=== PATIENT | female | born 1995 | race Hispanic/Latino ===

== ENCOUNTER 2019-01-06 14:40 | Emergency (ER) | payer SELFPAY ==
[2019-01-06] MEDS ORDERED: NA CHLORIDE 0.9% 1,000 ML ONE (15:25)
[2019-01-06 15:31] LABS: Absolute Lymphocytes (CBC) 2.9 K/uL (0.7-4.9); Absolute Monocytes 0.6 K/uL (0.1-1.3); Absolute Neutrophil 9.5 K/uL (1.8-8.0); Basophils % 0.5 % (0-1.3); Eosinophils % 0.5 % (0-4.4); Hematocrit 38.7 % (36.0-45.0); Lymphocytes % 22.1 % (15.3-44.8); MPV 8.1 fL (7.6-11.3); Monocytes % 4.2 % (3.3-12.3); RBC Red Blood Cell Count 4.39 M/uL (3.86-4.86)
[2019-01-06 16:05] LABS: BUN Blood Urea Nitrogen 8 mg/dL (7-18); Bicarbonate 25 mmol/L (21-32); Glucose Level 95 mg/dL (74-106); HCG, Quantitative 25389 mIU/mL (1-3); Potassium 3.3 mmol/L (3.5-5.1); Sodium Level 139 mmol/L (136-145)
--- NOTE | 2019-01-06 16:44 | RAD REPORT ---
EXAM DESCRIPTION: US - 1St Trimest Single 1St Fetus - 01/06/2019 4:27 pm CLINICAL HISTORY: ABD CRAMPING, COMPARISON: No comparisons FINDINGS: A single gestational sac is seen within the uterus. The shape of the sac is within normal limits for gestational age. Within the sac is a single pole with estimated gestational age of 1 4 weeks 4 days. Estimated date of delivery is 07/03/2019. Heart rate is 149 BPM, normal. The placenta is not yet developed due to early gestational age. The maternal adnexa and right ovary are within normal limits. Normal Doppler blood flow was demonstra maggie to right ovary. The left ovary was obscured by bowel gas. IMPRESSION: Single live early intrauterine gestation with estimated gestational age of 14 weeks 4 da ys, LITZY 07/03/2019. No acute abnormality detected.
--- NOTE | 2019-01-06 17:07 | ER ---
Nurse's Notes [facility] Name: Elissa Goldberg Age: 23 yrs Sex: Female : 1995 Arrival Date: 01/06/2019 Time: 14:42 Bed 28 Private MD: None, None Diagnosis: Lower abdominal pain, unspecified;14 weeks gestation of Presentation: 01/06 14:43 Presenting complaint: Lower abdominal cramping since this morning. Pt reports she is 7 hb weeks , LMP 10/03/18, . Denies bleeding/increased discharge/urinary s/s. Transition of care: patient was not received from another setting of care. Onset of symptoms was January 06, 2019. Risk Assessment: Do you want to hurt yourself or someone else? Patient reports no desire to harm self or others. Care prior to arrival: None. 14:43 Method Of Arrival: Ambulatory hb 14:43 Acuity: RENETTA 3 hb 15:31 Initial Sepsis Screen: Does the patient meet any 2 criteria? No. Patient's initial rv sepsis screen is negative. Does the patient have a suspected source of infection? No. Patient's initial sepsis screen is negative. 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 - Social history:: Smoking status: Patient/guardian denies using tobacco. - Ebola Screening: : No symptoms or risks identified at this time. Screenin:31 Abuse screen: Denies threats or abuse. Denies injuries from another. Nutritional rv screening: No deficits noted. Tuberculosis screening: No symptoms or risk factors identified. Fall Risk None identified. Assessment: 15:30 General: Appears in no apparent distress. uncomfortable, Behavior is calm, cooperative. rv Pain: Complains of pain in abdomen. Pain: Pain currently is 7 out of 10 on a pain scale. Neuro: Level of Consciousness is awake, alert, obeys commands, Oriented to person, place, time. Cardiovascular: Capillary refill < 3 seconds. Respiratory: Airway is patent. GI: Reports lower abdominal pain, cramping. : No signs and/or symptoms were reported regarding the genitourinary system. EENT: No signs and/or symptoms were reported regarding the EENT system. Derm: Skin is intact. Musculoskeletal: No signs and/or symptoms reported regarding the musculoskeletal system. 17:09 Reassessment: Patient appears in no apparent distress at this time. Patient and/or rv family updated on plan of care and expected duration. Pain level reassessed. Patient is alert, oriented x 3, equal unlabored respirations, skin warm/dry/pink. Vital Signs: 14:45 BP 124 / 77; Pulse 91; Resp 16; Temp 98.6; Pulse Ox 100% on R/A; Pain 7/10; hb 15:00 BP 107 / 63; Pulse 77; Resp 18; rv 15:15 BP 108 / 63; Pulse 86; Resp 17; rv 15:30 BP 98 / 64; Pulse 85; Resp 16; rv 16:00 BP 99 / 58; Pulse 85; Resp 19 S; rv 16:30 BP 113 / 66; Pulse 79; Resp 18 S; rv 16:45 BP 120 / 75; Pulse 85; Resp 18 S; rv 17:00 BP 108 / 53; Pulse 74; Resp 16 S; rv 17:25 BP 114 / 69; Pulse 76; Resp 18; Pulse Ox 99% on R/A; rv ED Course: 14:42 Patient arrived in ED. sb2 14:44 None, None is Private Physician. sb2 14:45 Triage completed. hb 14:45 Arm band placed on. hb 14:57 Shea Gee [facility]C [facility]. snw 14:57 Cassius Cotton MD is Attending Physician. snw 15:05 Inserted saline lock: 20 gauge in right antecubital area, using aseptic technique. rv Blood collected. 15:29 Quantitative Hcg Sent. rv 15:29 Abo/rh Typing Sent. rv 15:29 Basic Metabolic Panel Sent. rv 15:31 Patient has correct armband on for positive identification. Bed in low position. Call rv light in reach. Side rails up X 1. Adult w/ patient. Pulse ox on. NIBP on. 16:31 1St Trimest Single 1St Fetus In Process Unspecified. EDMS 17:26 No provider procedures requiring assistance completed. IV discontinued, bleeding rv controlled, No redness/swelling at site. Pressure dressing applied. Administered Medications: 15:29 Drug: NS 0.9% 1000 ml Route: IV; Rate: 125 ml/hr; Site: right antecubital; rv 17:26 Follow up: IV Status: Completed infusion rv Outcome: 17:07 Discharge ordered by . snbenja 17:26 Discharged to home ambulatory. rv 17:26 Condition: good 17:26 Discharge instructions given to patient, Instructed on discharge instructions, follow up and referral plans. medication usage, Demonstrated understanding of instructions, follow-up care, medications, Prescriptions given X 1. 17:27 Patient left the ED. rv Signatures: Dispatcher [employer] EDMS Shea Gee, GASTROENTEROLOGY NURSE-C GASTROENTEROLOGY NURSE-Csnw Brea Agrawal, RN RN Sylvia Silva2 Reji Mancia RN RN rv
--- NOTE | 2019-01-06 17:08 | EDPHYS ---
Physician Documentation [facility] Name: Elissa Goldberg Age: 23 yrs Sex: Female : 1995 Arrival Date: 01/06/2019 Time: 14:42 Bed 28 Private MD: None, None ED Physician Cassius Cotton HPI: 01/06 16:17 This 23 yrs old Female presents to ER via Ambulatory with complaints of snw Abdominal cramping- 13WK PG. 16:17 The patient presents with abdominal cramping. Onset: The symptoms/episode snw began/occurred suddenly. Associated signs and symptoms: Pertinent negatives: dysuria, vaginal bleeding, vaginal discharge, vomiting. Severity of symptoms: At their worst the symptoms were moderate. It is unknown whether or not the patient has had similar symptoms in the past. It is unknown whether or not the patient has recently seen a physician. 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 - Social history:: Smoking status: Patient/guardian denies using tobacco. - Ebola Screening: : No symptoms or risks identified at this time. ROS: 16:16 Constitutional: Negative for fever, chills, and weight loss, Eyes: Negative for injury, snw pain, redness, and discharge, ENT: Negative for injury, pain, and discharge, Neck: Negative for injury, pain, and swelling, Cardiovascular: Negative for chest pain, palpitations, and edema, Respiratory: Negative for shortness of breath, cough, wheezing, and pleuritic chest pain, Back: Negative for injury and pain, : Negative for injury, bleeding, discharge, and swelling, MS/Extremity: Negative for injury and deformity, Skin: Negative for injury, rash, and discoloration, Neuro: Negative for headache, weakness, numbness, tingling, and seizure. 16:16 Abdomen/GI: Positive for abdominal cramps, Negative for nausea, vomiting, and diarrhea, vaginal bleeding. Exam: 16:33 Constitutional: This is a well developed, well nourished patient who is awake, alert, snw and in no acute distress. Head/Face: Normocephalic, atraumatic. Eyes: Pupils equal round and reactive to light, extra-ocular motions intact. Lids and lashes normal. Conjunctiva and sclera are non-icteric and not injected. Cornea within normal limits. Periorbital areas with no swelling, redness, or edema. ENT: Nares patent. No nasal discharge, no septal abnormalities noted. Tympanic membranes are normal and external auditory canals are clear. Oropharynx with no redness, swelling, or masses, exudates, or evidence of obstruction, uvula midline. Mucous membranes moist. Neck: Trachea midline, no thyromegaly or masses palpated, and no cervical lymphadenopathy. Supple, full range of motion without nuchal rigidity, or vertebral point tenderness. No Meningismus. Chest/axilla: Normal chest wall appearance and motion. Nontender with no deformity. No lesions are appreciated. Cardiovascular: Regular rate and rhythm with a normal S1 and S2. No gallops, murmurs, or rubs. Normal PMI, no JVD. No pulse deficits. Respiratory: Lungs have equal breath sounds bilaterally, clear to auscultation and percussion. No rales, rhonchi or wheezes noted. No increased work of breathing, no retractions or nasal flaring. Back: No spinal tenderness. No costovertebral tenderness. Full range of motion. Skin: Warm, dry with normal turgor. Normal color with no rashes, no lesions, and no evidence of cellulitis. MS/ Extremity: Pulses equal, no cyanosis. Neurovascular intact. Full, normal range of motion. Neuro: Awake and alert, GCS 15, oriented to person, place, time, and situation. Cranial nerves II-XII grossly intact. Motor strength 5/5 in all extremities. Sensory grossly intact. Cerebellar exam normal. Normal gait. Psych: Awake, alert, with orientation to person, place and time. Behavior, mood, and affect are within normal limits. 16:33 Abdomen/GI: Inspection: abdomen appears normal, obese Bowel sounds: normal, Palpation: soft, in all quadrants, nontender. Vital Signs: 14:45 BP 124 / 77; Pulse 91; Resp 16; Temp 98.6; Pulse Ox 100% on R/A; Pain 7/10; hb 15:00 BP 107 / 63; Pulse 77; Resp 18; rv 15:15 BP 108 / 63; Pulse 86; Resp 17; rv 15:30 BP 98 / 64; Pulse 85; Resp 16; rv 16:00 BP 99 / 58; Pulse 85; Resp 19 S; rv 16:30 BP 113 / 66; Pulse 79; Resp 18 S; rv 16:45 BP 120 / 75; Pulse 85; Resp 18 S; rv 17:00 BP 108 / 53; Pulse 74; Resp 16 S; rv 17:25 BP 114 / 69; Pulse 76; Resp 18; Pulse Ox 99% on R/A; rv MDM: 14:57 Patient medically screened. snw 16:15 Data reviewed: vital signs, nurses notes. Data interpreted: Pulse oximetry: on room air snw is 100 %. Interpretation: normal. Counseling: I had a detailed discussion with the patient and/or guardian regarding: the historical points, exam findings, and any diagnostic results supporting the discharge/admit diagnosis, lab results, radiology results, the need for outpatient follow up. Awaiting: pt in US dept. 16:29 ED course: 14 wk, 4 d, IUP with HR 143 bpm. snw 01/06 14:59 Order name: Quantitative Hcg; Complete Time: 16:06 snw 01/06 14:59 Order name: Abo/rh Typing; Complete Time: 16:02 snw 01/06 14:59 Order name: Basic Metabolic Panel; Complete Time: 16:06 snw 01/06 14:59 Order name: CBC with Diff; Complete Time: 15:41 snw 01/06 16:05 Order name: ABO/RH no charge; Complete Time: 16:06 EDMS 01/06 16:33 Order name: Urine Microscopic Only snw 01/06 14:59 Order name: Urine Test (obtain specimen); Complete Time: 16:41 snw 01/06 14:59 Order name: IV Saline Lock; Complete Time: 15:29 snw 01/06 14:59 Order name: Labs collected and sent; Complete Time: 15:29 snw 01/06 16:31 Order name: 1St Trimest Single 1St Fetus; Complete Time: 16:58 EDMS 01/06 16:46 Order name: Urine Dipstick--Ancillary (enter results) 02/13 16:46 Order name: Urine --Ancillary (enter results) ss 01/06 14:59 Order name: NPO; Complete Time: 15:29 snw 01/06 14:59 Order name: Urine Dipstick-Ancillary (obtain specimen); Complete Time: 16:41 snw Administered Medications: 15:29 Drug: NS 0.9% 1000 ml Route: IV; Rate: 125 ml/hr; Site: right antecubital; rv 17:26 Follow up: IV Status: Completed infusion rv Disposition: 18:59 Co-signature as Attending Physician, Cassius Cotton MD. rn Disposition: 01/06/19 17:07 Discharged to Home. Impression: Lower abdominal pain, unspecified, 14 weeks gestation of . - Condition is Stable. - Discharge Instructions: Abdominal Pain During , Second Trimester of , [id number], Rehydration, Adult. - Prescriptions for Vitamin 27- 0.8 mg Oral Tablet - take 1 tablet by ORAL route once daily; 60 tablet. - Medication Reconciliation Form, Thank You Letter, Antibiotic Education, Prescription Opioid Use form. - Follow up: Private Physician; When: 2 - 3 days; Reason: Recheck today's complaints, Continuance of care, Re-evaluation by your physician. Follow up: Emergency Department; When: As needed; Reason: Worsening of condition. Signatures: Dispatcher [employer] EDTX Shea Gee, RESIDENTIAL CONCIERGE-C RESIDENTIAL CONCIERGE-Csnw Cassius Cotton MD MD rn Baxter, Heather, Reji Anderson RN, RN RN rv Corrections: (The following items were deleted from the chart) 16:18 16:17 This 23 yrs old Female presents to ER via Ambulatory with complaints of snw Vaginal Bleeding - 13WK PG. snw 16:31 16:07 Transvaginal Ob+US.RAD.BRZ ordered. EDMS EDMS 17:27 17:07 01/06/2019 17:07 Discharged to Home. Impression: Lower abdominal pain, rv unspecified; 14 weeks gestation of . Condition is Stable. Forms are Medication Reconciliation Form, Thank You Letter, Antibiotic Education, Prescription Opioid Use. Follow up: Private Physician; When: 2 - 3 days; Reason: Recheck today's complaints, Continuance of care, Re-evaluation by your physician. Follow up: Emergency Department; When: As needed; Reason: Worsening of condition. snw
[2019-01-06 18:06] LABS: Urine Bacteria 20-50 /HPF (<20); Urine RBC <5 /HPF (NONE SEEN)
[2019-01-06 18:07] LABS: Urine Amorphous Sediment 1+ /HPF (NONE SEEN); Urine Culture Reflex Order REFLEXED; Urine Mucus 1+ /HPF (NONE SEEN)
[2019-01-06 18:24] LABS: Urine Blood NEGATIVE (NEG); Urine Glucose NEGATIVE (NEG); Urine Protein TRACE (NEG); Urine Specific Gravity >1.030 (1.005-1.030); Urine pH 6.5 (5.0-7.0)
== END 2019-01-06 17:27 | disposition home or self-care (01) ==
LOC: ER 14:40
DX: O26.892 Other specified pregnancy related conditions, second trimester (principal); R10.30 Lower abdominal pain, unspecified; Z3A.14 14 weeks gestation of pregnancy
CPT/HCPCS: 36415; 76801; 80048; 81003; 81015; 81025; 84702; 85025; 86900; 86901; 87086; 87088; 96360; 96361; 99284; J7030

== ENCOUNTER 2019-06-18 04:14 | Inpatient (IN) | payer OTHER ==
--- OUTSIDE RECORDS SUMMARY | 2019-06-18 04:16 | XMS REPORT ---
:1995 [facility] Address [address] [place] [address] Dr. Killian [address] [place] [id number] Care Team Providers Name Role Phone Unavailable Unavailable Unavailable Problems This patient has no known problems. Allergies, Adverse Reactions, Alerts This patient has no known allergies or adverse reactions. Medications This patient has no known medications.
--- OUTSIDE RECORDS SUMMARY | 2019-06-18 04:46 | XMS REPORT ---
:1995 [facility] Address [address] [place] [address] Dr. Killian [address] [place] [id number] Care Team Providers Name Role Phone Unavailable Unavailable Unavailable Problems This patient has no known problems. Allergies, Adverse Reactions, Alerts This patient has no known allergies or adverse reactions. Medications This patient has no known medications.
[2019-06-18 07:09] VITALS: BMI 6467.6
[2019-06-18] MEDS ORDERED: BUTORPHANOL 1 MG/ML INJ IV PRN (07:09)
[2019-06-18] MEDS ORDERED: Ringers Lactate 1,000 ML IV PRN (07:09)
[2019-06-18] MEDS ORDERED: MEPERIDINE HCL 25 MG/0.5 ML IV PRN (07:09)
[2019-06-18] MEDS ORDERED: PROMETHAZINE 25 MG/ML VIAL IM PRN (07:09)
[2019-06-18] MEDS ORDERED: CARBOPROST TROME 250 MCG/ML IM PRN (07:09)
[2019-06-18 08:00] LABS: Absolute Lymphocytes (CBC) 2.9 K/uL (0.7-4.9); Basophils % 0.2 % (0-1.3); Hematocrit 34.9 % (36.0-45.0); Lymphocytes % 20.6 % (15.3-44.8); MPV 8.7 fL (7.6-11.3); RBC Red Blood Cell Count 4.38 M/uL (3.86-4.86)
[2019-06-18] MEDS ORDERED: Ringers Lactate 1,000 ML IV SCH (08:00)
[2019-06-18] MEDS ORDERED: OXYTOCIN/LR 20 UNIT/1,000 ML BAG IV SCH (08:00)
[2019-06-18] MEDS ORDERED: BUTORPHANOL 1 MG/ML INJ ONE (08:38)
--- NOTE | 2019-06-18 08:58 | PREOPHP ---
Date of Admission: 06/18/2019 She is a 24-year-old 5, para 1, 38 weeks 3 days, came in with contractions. The patient is g ood 3.5 cm, 50% effaced, vertex, -1 station, well applied. King every 4-5 minutes. Blood pre ssures were mildly elevated. She has +1 edema. We will check catheterized urine specimen, and if nec essary start her on magnesium sulfate. We will admit, start augmentation, and expect delivery later this morning. TAHMINA/JIMBO Voice ID: [id number]
[2019-06-18] MEDS ORDERED: METHYLERGONOVINE 0.2MG/ML AMP IM ONE ×2 (09:00→13:42)
[2019-06-18] MEDS ORDERED: ROPIVACAINE HCL 100 ML IV PRN (09:40)
[2019-06-18] MEDS ORDERED: FENTANYL CITR 100 MCG/2 ML IV ONE (09:40)
[2019-06-18 09:41] LABS: Urine Appearance CLEAR; Urine Bilirubin NEGATIVE (NEG); Urine Blood NEGATIVE (NEG); Urine Color YELLOW; Urine Glucose NEGATIVE (NEG); Urine Protein NEGATIVE (NEG); Urine Specific Gravity <=1.005 (1.005-1.030); Urine Urobilinogen 0.2 mg/dL (0.2-1.0)
[2019-06-18] MEDS ORDERED: ROPIVACAINE HCL 2 MG/ML 100ML IV ONE (09:42)
[2019-06-18 09:48] LABS: Urine Microscopic Reflex NO UMIC
--- NOTE | 2019-06-18 11:18 | PN ---
Patient is now 4 cm, rupture of membranes, clear fluid. Contractions are intensifying. She will be wanting epidural when she makes little bit more progress. TAHMINA/JIMBO Voice ID: [id number] Report ID: [id number]
[2019-06-18] MEDS ORDERED: CARBOPROST TROME 250 MCG/ML IM ONE (13:42)
[2019-06-18] MEDS ORDERED: LIDOCAINE 1% MPF 30 ML VIAL ONE (13:42)
[2019-06-18] MEDS ORDERED: Oxycodone HCl/Acetaminophen 1 TAB TAB PO PRN ×2 (13:56)
[2019-06-18] MEDS ORDERED: DOCUSATE NA/SENNA CONC 1 TAB PO PRN (13:56)
[2019-06-18] MEDS ORDERED: BISACODYL 10 MG RECTAL SUPP PR PRN (13:56)
[2019-06-18] MEDS ORDERED: DIPHENHYDRAMINE 25 MG TAB/CAP PO PRN (13:56)
[2019-06-18] MEDS ORDERED: ACETAMINOPHEN 500 MG TAB PO PRN (13:56)
[2019-06-18] MEDS: METHYLERGONOVINE 0.2 MG TAB PO PRN ×3 (14:30→22:28)
[2019-06-18] MEDS: OXYTOCIN/LR 20 UNIT/1,000 ML BAG IV SCH ×2 (14:48→22:20)
[2019-06-18] MEDS: IBUPROFEN 200 MG TAB PO PRN (18:30)
[2019-06-18 21:57] LABS: RPR (Rapid Plasma Reagin) NON-REACT (NON-REACT)
[2019-06-19] MEDS: IBUPROFEN 200 MG TAB PO PRN (02:00)
[2019-06-19] MEDS: METHYLERGONOVINE 0.2 MG TAB PO PRN (02:28)
[2019-06-19] MEDS ORDERED: MEASLES,MUMPS,RUBELLA VAC 0.5ML SQVAC ONE (09:01)
[2019-06-19] MEDS ORDERED: Tdap (Diph,Pertuss(Acell),Tet Vac) 0.5 ML SYR IMVAC ONE (09:01)
[2019-06-19 16:02] VITALS: BP 138/68; TEMP 98.3
--- NOTE | 2019-06-21 08:16 | PN ---
Patient is now 5 cm, however the baby has not decended from what it was on prior exam, nonetheless patient requested and received epidural anesthesia. She is quite comfortable at this point. Scalp electrode was placed and the baby shows somewhat decreased beat to beat but not significantly and patient has had Stadol, I think as that Stadol wears off, the [id number] will become more dramatic. The patient is not having any back pain. At this point, I still cannot tell what position the baby is in, whether it is occiput posterior. We will continue to increase the Pitocin and hope for a more rapid progress in the next hour or so. TAHMINA/JIMBO Voice ID: [id number] Report ID: [id number] MTDD
--- NOTE | 2019-06-21 08:16 | PN ---
The patient is now 9 cm and with pushing she can reduce the lip. Baby is at +1 station. I think we are getting close to the delivery. TAHMINA/JIMBO Voice ID: [id number] Report ID: [id number]
--- NOTE | 2019-06-21 08:19 | OP ---
Surgeon: Darrel Barraza MD This 24-year-old 5, para 1, at 38 weeks 3 days, came in early labor. Started on Pitocin augmentation. Had Stadol initially at 4.5 cm, requested and received epidural anesthesia. Made steady progress during the day at approximately 9 cm, pushed past her cervical lip, second stage of about 30 minutes. Spontaneous vaginal delivery of an estimated 7-pound female, Apgars 4 and 6 in my estimation . Pediatrics notified Dr. Cano here. Second-degree episiotomy repaired with 2-0 chromic. Singletary delivery of the placenta. Uterus mtqa-lr-zsaatlfk hypotonus, 0.2 mg of Methergine IM, IV drip Pitocin. Estimated blood loss 550 cc. Patient tolerated all procedures well, requested 25 mg of Demerol after delivery of the baby, clamping the cord. Was also given local infiltration to reinforce repair of episiotomy. Equivocal to rubella. Immunity, this will be taken care of in the period. Final Diagnoses: Intrauterine gestation, 38 weeks 3 days, spontaneous labor, vaginal delivery. Moderate shoulder dystocia with flexion of the legs and suprapubic pressure. Vacuum-assisted delivery. Lapf-gc-mrkheybv uterine hypotonus. PADMINIC/JIMBO Voice ID: [id number] Report ID: [id number] MTDD
--- NOTE | 2019-06-21 18:43 | DN ---
Surgeon: Darrel Barraza MD A 24-year-old, 5, para 1, 38 weeks 3 days, came in rafa in early labor, 3.5 cm, 50% ef faced, vertex, -1 station, well applied. Rafa every 4 to 5 minutes. Blood pressure is mildly elevated. +1 edema. Urine protein is pending. She was admitted and started on Pitocin, light augm entation. Initially, received Stadol IV. Then, at her request, she received epidural anesthesia. P rogressed slowly, but well during the day. Baby was noted to be occiput posterior. We told the josé manuel ent that she should probably let the epidural wear off, but was insistent that we continue. We did d ecrease it from 8, eventually down to 4 mL maintenance dose. After 30 to 45 minute second stage, vac uum suction was applied and the baby's head was delivered. At this point, ggvf-te-cnzhhzlg shoulder dystocia was noted. Flexion of the legs and suprapubic pressure affected delivery. Baby initially c ried, but then went into a secondary apnea. I took care of the baby myself during the initial few mi nutes, initially gave of 4 at one minute. I think at five minutes, the baby was breathing on i ts own. Color was improved and gave of [address] Brandon was in the hospital and he checked on the baby, said the baby was breathing on her own. Dr. Cano was also being call ed and came in and checked out the baby, said she was breathing on her own. Doing well in that regar d, but could have a brachial plexus problem. As stated, delivery was not extremely difficult, mild-t o-moderate. Second-degree episiotomy had been performed, repaired with 2-0 chromic. Singletary delivery of the placenta. Uterus initially hypotonic, 0.2 mg of Methergine IM. Estimated blood loss 450 to 500 cc. Uterus contracted down well thereafter. The patient tolerated all procedures well. Final Diagnoses: Intrauterine gestation, 38 weeks and 3 days. Epidural anesthesia. Vaginal deliver y, vacuum-assisted. Nswt-lu-xyvstxeo shoulder dystocia. NBC/MODL Voice ID: [id number] Report ID: [id number]
[2019-06-22 03:55] LABS: HBsAG Nonreactive (Nonreactive)
== END 2019-06-19 16:35 | disposition home or self-care (01) | DRG 807 ==
LOC: L&D 04:14 → LAB 04:14 → 2ND-WC 06:05
PROVIDERS: ADMIT Specialist; ATTEND Specialist
PROC: 10D07Z6 Extraction of Products of Conception, Vacuum, Via Natural or Artificial Opening (ICD-10-PCS; principal; 2019-06-18)
PROC: 0W8NXZZ Division of Female Perineum, External Approach (ICD-10-PCS; 2019-06-18)
DX: O66.0 Obstructed labor due to shoulder dystocia (principal); Z37.0 Single live birth; Z3A.38 38 weeks gestation of pregnancy; O62.2 Other uterine inertia
CPT/HCPCS: 36415; 81003; 85025; 86592; 86901; 87340; 90471; 90707; 90715; J0595; J2175; J2210; J2590; J2795; J3010